=== PATIENT | female | born 1985 | race Two or more races ===

== ENCOUNTER 2021-07-01 12:24 | Emergency (ER) | payer OTHER ==
[2021-07-01 12:56] VITALS: BP 122/83; PULSE 103; TEMP 98.3; BMI 27.4
[2021-07-01] MEDS ORDERED: ACETAMINOPHEN 500 MG TABLET (FP) PO ONE (13:20)
[2021-07-01] MEDS ORDERED: ACETAMINOPHEN 500 MG TABLET (FP) ONE (13:26)
== END 2021-07-01 13:33 | disposition home or self-care (01) ==
LOC: JER 12:24 → JERFT 12:24
DX: M62.830 Muscle spasm of back (principal); M54.6 Pain in thoracic spine
CPT/HCPCS: 99283-25